=== PATIENT | male | born 1950 | race Caucasian/White ===

== ENCOUNTER 2017-01-26 14:35 | Observation (INO) | payer OTHER ==
--- NOTE | 2017-01-26 17:57 | DR.H&P ---
H&P - History & Physical for Day of: H&P Date: 01/26/17 - Chief Complaint Chief Complaint: weakness, confusion per family - Allergies Allergies/Adverse Reactions: Allergies Allergy/AdvReac Type Severity Reaction Status Date / Time No Known Drug Allergies Allergy Verified 01/08/17 01:37 - History of Present Illness History of Present Illness: patient is a 66-year-old white male who was a direct admit from Dr. Saenz's office after presenting to the office today for follow-up visit. Patient was recently diagnosed with cirrhosis of the liver as well as abnormal findings on diagnostic tests consistent with multiple myeloma. Patient has been referred to jewel bearing facer/oncologist on an outpatient basis which he has not pain at this time. Patient was recently released from [facility] in [facility] after acute illness. Patient was started on medicine for liver disease. Family reports patient also has a back fracture that is causing increased pain and decreased mobility. Patient reports increased lower extremity weakness and shortness of breath. Patient's family states he has transient changes in his mental status. Episodes of confusion consistent with changes in ammonia levels from cirrhosis/liver disease. Patient and family would like to consider placement in rehabilitation facility. We plan to admit for further evaluation of generalized weakness. Obtain admission labs and ammonia level, chest x-ray and EKG. We will consult case management for placement in [facility]. - Past Medical History Past Medical History: Cirrhosis, COPD, Diabetes, GERD, Hypertension - Past Surgical History Surgical History: Appendectomy, Cholecystectomy - Family History Family Medical History: Diabetes Mellitus, Coronary Artery Disease, Hypertension - Social History Does patient currently use any type of tobacco product: No Have you used tobacco products in the last 12 months: No Type of Tobacco Use: None Does any household member use tobacco: No Alcohol Use: None Drug Use: None - Review of Systems Constitutional: Weakness Eyes: No Symptoms Reported ENT: No Symptoms Reported Respiratory: SOB with Excertion Cardiovascular: Edema Gastrointestinal: Nausea, Diarrhea Genitourinary: Frequency Musculoskeletal: Back Pain, Leg Pain Skin: Ecchymosis Neurological: Weakness, Confusion - Physical Exam Vital Signs: Temperature 98.3 F Pulse Rate [Left Brachial] 73 Respiratory Rate 20 Blood Pressure [Right Arm] 125/60 Blood Pressure [Left Arm] 131/65 Blood Pressure 122/61 O2 Sat by Pulse Oximetry 93 Oriented: Person Eyes: Normal Ear: Normal Nose: Normal Throat: Normal Respiratory: RLL Diminished, LLL Diminished Cardiovascular: Normal, Edema : Normal Auscultation: Bowel Sounds: Normal Palpation: Liver Enlarged, Other (distention) Skin: Bruising Musculoskeletal: Back:Thoracic, Back:Lumbar Psychiatric: Anxiety Speech Pattern: Clear, Appropriate - Assessment/Plan (1) Generalized weakness Status: Acute Plan: admit. CBC, CMP, ammonia level, UA, urine culture on admission. Resume home medications. Chest x-ray on admission. Blood pressure control mental status checks consult case management and physical therapy. Discussed placement for rehabilitation at [facility]. (2) Cirrhosis of liver Status: Acute (3) GERD (gastroesophageal reflux disease) Status: Acute (4) Hypertension Status: Acute (5) Back pain Status: Acute
[2017-01-26] MEDS ORDERED: PREVNAR 13 IM ONE (18:28)
[2017-01-26] MEDS ORDERED: FLUVIRIN IM ONE (18:28)
[2017-01-26 19:26] LABS: BASOPHILS # (AUTO) 0.1 X10^3/uL (0.0-0.1); EOSINOPHILS # (AUTO) 0.1 x10^3/uL (0.0-0.2); EOSINOPHILS % (AUTO) 1.7 % (0.9-2.9); HEMATOCRIT 33.5 % (42.0-54.0); HEMOGLOBIN 11.4 g/dL (13.5-18.0); LYMPHOCYTES # (AUTO) 1.4 X10^3/uL (1.3-2.9); MEAN CORPUSCULAR HEMOGLOBIN 32.9 pg (27.0-34.0); MEAN CORPUSCULAR VOLUME 96.8 fL (80.0-100.0); MEAN PLATELET VOLUME 8.3 fL (7.4-11.0); MONOCYTES # (AUTO) 0.4 x10^3/uL (0.3-0.8); MONOCYTES % (AUTO) 12.6 % (0.0-13.0); NEUTROPHILS # (AUTO) 1.4 x10^3/uL (2.2-4.8); NEUTROPHILS % (AUTO) 41.7 % (42.0-75.0); PLATELET COUNT 100 X10^3/uL (150.0-450.0); RED BLOOD COUNT 3.46 X10^6/uL (4.7-6.0); RED CELL DISTRIBUTION WIDTH 16.5 % (11.6-16.5); WHITE BLOOD COUNT 3.3 X10^3/uL (3.6-10.0)
[2017-01-26 19:36] LABS: AMMONIA 39 umol/L (11-32)
[2017-01-26 19:50] LABS: PLATELET MORPHOLOGY COMMENT NORMAL (NORMAL)
[2017-01-26 19:51] LABS: BAND NEUTROPHILS % 1 % (0-10); BASOPHILS % (MANUAL) 1 % (0-1)
[2017-01-26] MEDS ORDERED: ULTRAM PO PRN (19:51)
[2017-01-26 19:52] LABS: HYPOCHROMASIA SLIGHT
[2017-01-26] MEDS ORDERED: TRICOR TAB 160 MG PO SCH (21:00)
[2017-01-26] MEDS ORDERED: PATIENT'S HOME MEDICATION (Fluoxetine Hcl [Prozac Cap 40 Mg] 40 MG) PO SCH (21:00)
[2017-01-26] MEDS ORDERED: COREG TAB 12.5 MG PO SCH (21:00)
[2017-01-26] MEDS ORDERED: NEURONTIN CAP 300 MG PO SCH (21:00)
[2017-01-26] MEDS ORDERED: XIFAXAN PO SCH (21:00)
[2017-01-26] MEDS ORDERED: PriLOSEC PO SCH (21:00)
[2017-01-26] MEDS ORDERED: PATIENT'S HOME MEDICATION (Metformin Hcl [Metformin Hcl] 1 TAB) PO SCH (21:00)
[2017-01-26 21:34] LABS: BLOOD UREA NITROGEN 11 mg/dL (7-18); CALCIUM 11.1 mg/dL (8.5-10.1); CARBON DIOXIDE 22.7 mmol/L (21-32); CHLORIDE 106 mmol/L (98-107); COR NA(FOR HYPERGLY) 146 mmol/L (136-145); CREATININE 1.07 mg/dL (0.70-1.30); SODIUM 145 mmol/L (136-145); eGFR BLACK RACES > 60 (>60); eGFR NON BLACK RACES > 60 (>60)
[2017-01-26] MEDS: COREG TAB 12.5 MG PO SCH (21:48)
[2017-01-26] MEDS ORDERED: GLUCOPHAGE ONE (21:58)
[2017-01-26] MEDS: GLUCOPHAGE PO SCH (22:05)
[2017-01-26] MEDS: PriLOSEC PO SCH (22:06)
[2017-01-26] MEDS: NEURONTIN TAB 600 MG PO SCH (22:06)
[2017-01-26] MEDS: XIFAXAN PO SCH (22:07)
[2017-01-26] MEDS: PROzac PO SCH (22:07)
[2017-01-26] MEDS: TRICOR TAB 160 MG PO SCH (22:08)
--- NOTE | 2017-01-26 23:11 | RAD ---
Single portable view of the chest Indication: Shortness of breath with back pain. Findings/conclusion: There is cardiomegaly with pulmonary venous hypertension. No large pleural effus ion is seen. Opacity within the right lower lobe appears to represent a confluence of vessels. The re maining lungs are clear. Reported By:
[2017-01-26 23:41] LABS: ALANINE AMINOTRANSFERASE 23 Units/L (12-78); ALBUMIN 2.9 g/dL (3.4-5.0); ALKALINE PHOSPHATASE 187 Units/L (46-116); ASPARTATE AMINO TRANSFERASE 65 Units/L (15-37); TOTAL PROTEIN 6.3 g/dL (6.4-8.2)
[2017-01-26 23:47] LABS: BILIRUBIN,URINE NEGATIVE (NEGATIVE); BLOOD/HEMOGLOBIN,URINE NEGATIVE (NEGATIVE); GLUCOSE, URINE 4+ (NEGATIVE); KETONES,URINE NEGATIVE (NEGATIVE); LEUKOCYTE ESTERASE ,URINE NEGATIVE (NEGATIVE); NITRITES,URINE NEGATIVE (NEGATIVE); PROTEIN,URINE NEGATIVE (NEGATIVE); UROBILINOGEN,URINE NORMAL (NORMAL)
[2017-01-26 23:59] LABS: APPEARANCE,URINE CLOUDY (CLEAR); BACTERIA,URINE TRACE /HPF (NEGATIVE); COLOR,URINE YELLOW (YELLOW); RBC,URINE 0-3 /HPF (NEGATIVE); SQUAMOUS EPITHELIAL CELL,UR RARE /HPF (NEGATIVE)
[2017-01-27] LABS: AMORPHOUS SEDIMENT,UR 3+ /HPF (NEGATIVE)
[2017-01-27 05:14] LABS: BASOPHILS % (AUTO) 0.7 % (0.2-1.0); EOSINOPHILS # (AUTO) 0.1 x10^3/uL (0.0-0.2); EOSINOPHILS % (AUTO) 2.1 % (0.9-2.9); HEMATOCRIT 33.3 % (42.0-54.0); HEMOGLOBIN 11.4 g/dL (13.5-18.0); LYMPHOCYTES # (AUTO) 1.2 X10^3/uL (1.3-2.9); LYMPHOCYTES % (AUTO) 37.6 % (21.0-51.0); MEAN CORPUSCULAR HEMOGLOBIN 32.8 pg (27.0-34.0); MEAN CORPUSCULAR HGB CONC 34.1 g/dL (33.0-35.0); MEAN CORPUSCULAR VOLUME 96.2 fL (80.0-100.0); MEAN PLATELET VOLUME 8.4 fL (7.4-11.0); MONOCYTES # (AUTO) 0.4 x10^3/uL (0.3-0.8); MONOCYTES % (AUTO) 12.5 % (0.0-13.0); NEUTROPHILS # (AUTO) 1.5 x10^3/uL (2.2-4.8); NEUTROPHILS % (AUTO) 47.1 % (42.0-75.0); PLATELET COUNT 91 X10^3/uL (150.0-450.0); RED BLOOD COUNT 3.46 X10^6/uL (4.7-6.0); WHITE BLOOD COUNT 3.2 X10^3/uL (3.6-10.0)
[2017-01-27 05:24] LABS: ALANINE AMINOTRANSFERASE 18 Units/L (12-78); ALBUMIN 2.8 g/dL (3.4-5.0); ALKALINE PHOSPHATASE 177 Units/L (46-116); ASPARTATE AMINO TRANSFERASE 53 Units/L (15-37); BLOOD UREA NITROGEN 11 mg/dL (7-18); CARBON DIOXIDE 29.7 mmol/L (21-32); CHLORIDE 108 mmol/L (98-107); COR NA(FOR HYPERGLY) 147 mmol/L (136-145); CREATININE 1.04 mg/dL (0.70-1.30); SODIUM 146 mmol/L (136-145); eGFR BLACK RACES > 60 (>60); eGFR NON BLACK RACES > 60 (>60)
[2017-01-27] MEDS ORDERED: LASIX PO SCH (09:00)
[2017-01-27] MEDS ORDERED: CANAGLIFLOZIN PO SCH (09:00)
[2017-01-27] MEDS ORDERED: GLUCOPHAGE ONE ×2 (09:13→21:08)
[2017-01-27] MEDS ORDERED: PREVNAR 13 IM ONE (09:14)
[2017-01-27] MEDS ORDERED: FLUVIRIN IM ONE (09:14)
[2017-01-27] MEDS: COREG TAB 12.5 MG PO SCH ×2 (10:18→21:54)
[2017-01-27] MEDS: LASIX PO SCH (10:19)
[2017-01-27] MEDS: PriLOSEC PO SCH ×2 (10:19→21:56)
[2017-01-27] MEDS: XIFAXAN PO SCH ×2 (10:19→21:58)
[2017-01-27] MEDS: GLUCOPHAGE PO SCH ×2 (10:19→21:55)
[2017-01-27] MEDS: PATIENT'S HOME MEDICATION PO SCH (10:20)
[2017-01-27] MEDS: ULTRAM PO PRN ×2 (10:32→18:20)
[2017-01-27 10:51] VITALS: BMI 29.4
[2017-01-27] MEDS: SNACK - Diabetic Appropriate PO SCH ×2 (11:00→20:30)
[2017-01-27] MEDS: TRICOR TAB 160 MG PO SCH (21:55)
[2017-01-27] MEDS: NEURONTIN TAB 600 MG PO SCH (21:56)
[2017-01-27] MEDS: PROzac PO SCH (21:57)
[2017-01-28 05:33] LABS: BASOPHILS % (AUTO) 0.4 % (0.2-1.0); EOSINOPHILS # (AUTO) 0.1 x10^3/uL (0.0-0.2); EOSINOPHILS % (AUTO) 2.7 % (0.9-2.9); HEMATOCRIT 34.5 % (42.0-54.0); HEMOGLOBIN 11.8 g/dL (13.5-18.0); LYMPHOCYTES # (AUTO) 1.2 X10^3/uL (1.3-2.9); LYMPHOCYTES % (AUTO) 40.7 % (21.0-51.0); MEAN CORPUSCULAR HGB CONC 34.1 g/dL (33.0-35.0); MEAN CORPUSCULAR VOLUME 96.7 fL (80.0-100.0); MEAN PLATELET VOLUME 8.5 fL (7.4-11.0); MONOCYTES # (AUTO) 0.4 x10^3/uL (0.3-0.8); MONOCYTES % (AUTO) 12.8 % (0.0-13.0); NEUTROPHILS # (AUTO) 1.3 x10^3/uL (2.2-4.8); NEUTROPHILS % (AUTO) 43.4 % (42.0-75.0); PLATELET COUNT 92 X10^3/uL (150.0-450.0); RED BLOOD COUNT 3.56 X10^6/uL (4.7-6.0)
[2017-01-28 05:53] LABS: ALANINE AMINOTRANSFERASE 21 Units/L (12-78); ALBUMIN 2.9 g/dL (3.4-5.0); ALKALINE PHOSPHATASE 175 Units/L (46-116); ASPARTATE AMINO TRANSFERASE 60 Units/L (15-37); BLOOD UREA NITROGEN 11 mg/dL (7-18); CALCIUM 11.2 mg/dL (8.5-10.1); CARBON DIOXIDE 28.9 mmol/L (21-32); CHLORIDE 108 mmol/L (98-107); COR CA(FOR HYPOALB) 12.1 mg/dL (8.5-10.1); COR NA(FOR HYPERGLY) 146 mmol/L (136-145); CREATININE 0.95 mg/dL (0.70-1.30); SODIUM 146 mmol/L (136-145); TOTAL PROTEIN 6.3 g/dL (6.4-8.2); eGFR BLACK RACES > 60 (>60); eGFR NON BLACK RACES > 60 (>60)
[2017-01-28] MEDS ORDERED: MAGNESIUM SULFATE 1 GM/100 mL PREMIX 1 GM/100 ML BAG IV PRN (06:09)
[2017-01-28] MEDS ORDERED: K-DUR TAB 20 MEQ PO PRN (06:09)
[2017-01-28] MEDS ORDERED: MAG-OX TAB PO PRN (06:09)
[2017-01-28] MEDS ORDERED: K-RIDER 10 MEQ/NS 100 ML 10 MEQ/100 ML BAG IV PRN (06:09)
[2017-01-28] MEDS ORDERED: POTASSIUM CHLORIDE LIQ 20 MEQ UDC PO PRN (06:09)
[2017-01-28] MEDS ORDERED: K-LYTE EFFERVESCENT PO PRN (06:09)
[2017-01-28] MEDS ORDERED: LASIX IVP NR (08:05)
[2017-01-28] MEDS: MAG-OX TAB PO SCH ×2 (09:21→16:10)
[2017-01-28] MEDS ORDERED: GLUCOPHAGE ONE ×2 (10:29→20:20)
[2017-01-28] MEDS: GLUCOPHAGE PO SCH ×2 (10:33→20:43)
[2017-01-28] MEDS: COREG TAB 12.5 MG PO SCH ×2 (10:34→20:43)
[2017-01-28] MEDS: K-DUR TAB 20 MEQ PO SCH (10:34)
[2017-01-28] MEDS: PATIENT'S HOME MEDICATION PO SCH (10:34)
[2017-01-28] MEDS: PriLOSEC PO SCH ×2 (10:34→20:43)
[2017-01-28] MEDS: XIFAXAN PO SCH ×2 (10:34→20:48)
[2017-01-28] MEDS: LASIX PO SCH (10:35)
[2017-01-28] MEDS: ULTRAM PO PRN (16:10)
[2017-01-28] MEDS: PROzac PO SCH (20:43)
[2017-01-28] MEDS: NEURONTIN TAB 600 MG PO SCH (20:43)
[2017-01-28] MEDS: SNACK - Diabetic Appropriate PO SCH (20:47)
[2017-01-28] MEDS: TRICOR TAB 160 MG PO SCH (20:47)
[2017-01-29 06:06] LABS: BASOPHILS % (AUTO) 0.5 % (0.2-1.0); EOSINOPHILS # (AUTO) 0.1 x10^3/uL (0.0-0.2); HEMATOCRIT 33.9 % (42.0-54.0); HEMOGLOBIN 11.6 g/dL (13.5-18.0); LYMPHOCYTES # (AUTO) 1.4 X10^3/uL (1.3-2.9); LYMPHOCYTES % (AUTO) 42.3 % (21.0-51.0); MEAN CORPUSCULAR HEMOGLOBIN 33.2 pg (27.0-34.0); MEAN CORPUSCULAR HGB CONC 34.3 g/dL (33.0-35.0); MEAN CORPUSCULAR VOLUME 96.7 fL (80.0-100.0); MEAN PLATELET VOLUME 8.5 fL (7.4-11.0); MONOCYTES # (AUTO) 0.4 x10^3/uL (0.3-0.8); MONOCYTES % (AUTO) 11.9 % (0.0-13.0); NEUTROPHILS # (AUTO) 1.4 x10^3/uL (2.2-4.8); NEUTROPHILS % (AUTO) 42.3 % (42.0-75.0); PLATELET COUNT 89 X10^3/uL (150.0-450.0); RED CELL DISTRIBUTION WIDTH 16.4 % (11.6-16.5); WHITE BLOOD COUNT 3.3 X10^3/uL (3.6-10.0)
[2017-01-29] MEDS: MAG-OX TAB PO SCH ×2 (06:08→17:30)
[2017-01-29 06:11] LABS: ALANINE AMINOTRANSFERASE 19 Units/L (12-78); ALBUMIN 2.9 g/dL (3.4-5.0); ALKALINE PHOSPHATASE 168 Units/L (46-116); ASPARTATE AMINO TRANSFERASE 59 Units/L (15-37); BLOOD UREA NITROGEN 10 mg/dL (7-18); CALCIUM 11.5 mg/dL (8.5-10.1); CARBON DIOXIDE 30.5 mmol/L (21-32); CHLORIDE 107 mmol/L (98-107); COR CA(FOR HYPOALB) 12.4 mg/dL (8.5-10.1); COR NA(FOR HYPERGLY) 145 mmol/L (136-145); CREATININE 0.92 mg/dL (0.70-1.30); MAGNESIUM 1.8 mg/dL (1.7-2.9); SODIUM 145 mmol/L (136-145); TOTAL PROTEIN 6.2 g/dL (6.4-8.2); eGFR BLACK RACES > 60 (>60); eGFR NON BLACK RACES > 60 (>60)
[2017-01-29] MEDS ORDERED: GLUCOPHAGE ONE ×2 (08:21→20:32)
[2017-01-29] MEDS: XIFAXAN PO SCH ×2 (08:33→21:05)
[2017-01-29] MEDS: ULTRAM PO PRN (08:33)
[2017-01-29] MEDS: GLUCOPHAGE PO SCH ×2 (08:34→21:04)
[2017-01-29] MEDS: COREG TAB 12.5 MG PO SCH ×2 (08:34→21:04)
[2017-01-29] MEDS: PATIENT'S HOME MEDICATION PO SCH (08:35)
[2017-01-29] MEDS: PriLOSEC PO SCH ×2 (08:35→21:04)
[2017-01-29] MEDS: K-DUR TAB 20 MEQ PO SCH (08:35)
[2017-01-29] MEDS: LASIX PO SCH (08:35)
[2017-01-29] MEDS ORDERED: CHRONULAC PO SCH (21:00)
[2017-01-29] MEDS: NEURONTIN TAB 600 MG PO SCH (21:04)
[2017-01-29] MEDS: PROzac PO SCH (21:04)
[2017-01-29] MEDS: TRICOR TAB 160 MG PO SCH (21:05)
[2017-01-29] MEDS: SNACK - Diabetic Appropriate PO SCH (21:08)
--- NOTE | 2017-01-29 22:38 | PCM.PROG ---
Progress Note - Progress Note for Day of Date: 01/29/17 - Subjective Subjective: patient is a 66-year-old white male who was a direct admit from Dr. Saenz's office after presenting to the office today for follow-up visit. Patient was recently diagnosed with cirrhosis of the liver as well as abnormal findings on diagnostic tests consistent with multiple myeloma. Patient has been referred to cloth examiner machine/oncologist on an outpatient basis which he has not pain at this time. Patient was recently released from [facility] in [facility] after acute illness. Patient was started on medicine for liver disease. Family reports patient also has a back fracture that is causing increased pain and decreased mobility. Patient reports increased lower extremity weakness and shortness of breath. Patient's family states he has transient changes in his mental status. Episodes of confusion consistent with changes in ammonia levels from cirrhosis/liver disease. Patient and family would like to consider placement in rehabilitation facility. Patient has signed a DNR. Does complain of right testicle is painful. States he has had an US on it. States he was being evaluated for multiple myeloma in [place]. - Past Medical Family Social History Past Med/Fam/Surg Hx: No changes since H&P Allergies: Allergies No Known Drug Allergies Allergy (Verified 01/08/17 01:37) - Review of Systems ROS: No change since H&P - Vital Signs and I&O's Vital Signs: Temperature 97.5 F Pulse Rate [Left Brachial] 67 Respiratory Rate 20 Blood Pressure [Right Arm] 121/64 Blood Pressure [Left Arm] 128/61 Blood Pressure 122/61 O2 Sat by Pulse Oximetry 91 Intake and Output: Intake & Output 01/27/17 01/28/17 01/29/17 01/30/17 11:59 11:59 11:59 11:59 Intake Total 5484 247 1839 1470 Balance 3415 457 3490 1470 - Physical Exam Oriented: Normal Eyes: Normal Ear: Normal Nose: Normal Throat: Normal Respiratory: Diminished Cardiovascular: Normal, Edema : Normal Auscultation: Bowel Sounds: Normal Palpation: Liver Enlarged Tenderness: Normal Skin: Bruising Musculoskeletal: Back:Thoracic, Back:Lumbar, Tender Psychiatric: Normal Mood Description: Calm Affect: Normal Speech Pattern: Clear, Appropriate - Laboratory and Diagnostics Result Diagrams: 01/29/17 03:25 01/29/17 03:25 Labs: 01/26/17 23:37 Urine,Clean Catch Urine Culture - Final Laboratory WBC 3.3 X10^3/uL (3.6-10.0) L 01/29/17 03:25 RBC 3.50 X10^6/uL (4.7-6.0) L 01/29/17 03:25 Hgb 11.6 g/dL (13.5-18.0) L 01/29/17 03:25 Hct 33.9 % (42.0-54.0) L 01/29/17 03:25 MCV 96.7 fL (80.0-100.0) 01/29/17 03:25 MCH 33.2 pg (27.0-34.0) 01/29/17 03:25 MCHC 34.3 g/dL (33.0-35.0) 01/29/17 03:25 RDW 16.4 % (11.6-16.5) 01/29/17 03:25 Plt Count 89 X10^3/uL (150.0-450.0) L 01/29/17 03:25 Plt Count Comment Decreased (ADEQUATE) 01/26/17 19:15 MPV 8.5 fL (7.4-11.0) 01/29/17 03:25 Neut % 42.3 % (42.0-75.0) 01/29/17 03:25 Lymph % 42.3 % (21.0-51.0) 01/29/17 03:25 [place] % 11.9 % (0.0-13.0) 01/29/17 03:25 Eos % 3.0 % (0.9-2.9) H 01/29/17 03:25 Baso % 0.5 % (0.2-1.0) 01/29/17 03:25 Neut # 1.4 x10^3/uL (2.2-4.8) L 01/29/17 03:25 Lymph # 1.4 X10^3/uL (1.3-2.9) 01/29/17 03:25 [place] # 0.4 x10^3/uL (0.3-0.8) 01/29/17 03:25 Eos # 0.1 x10^3/uL (0.0-0.2) 01/29/17 03:25 Baso # 0.0 X10^3/uL (0.0-0.1) 01/29/17 03:25 Absolute Nucleated RBC 0.5 /100WBC 01/29/17 03:25 Total Counted 100 01/26/17 19:15 Neutrophils % (Manual) 54 % (39-76) 01/26/17 19:15 Band Neutrophils % 1 % (0-10) 01/26/17 19:15 Lymphocytes % (Manual) 36 % (13-43) 01/26/17 19:15 Monocytes % (Manual) 7 % (4-9) 01/26/17 19:15 Eosinophils % (Manual) 1 % (0-6) 01/26/17 19:15 Basophils % (Manual) 1 % (0-1) 01/26/17 19:15 Plt Morphology Comment Normal (NORMAL) 01/26/17 19:15 RBC Morphology Abnormal (NORMAL) 01/26/17 19:15 Hypochromasia Slight A 01/26/17 19:15 Sodium 145 mmol/L (136-145) 01/29/17 03:25 Corrected Sodium 145 mmol/L (136-145) 01/29/17 03:25 Potassium 3.5 mmol/L (3.5-5.1) 01/29/17 03:25 Chloride 107 mmol/L (98-107) 01/29/17 03:25 Carbon Dioxide 30.5 mmol/L (21-32) 01/29/17 03:25 BUN 10 mg/dL (7-18) 01/29/17 03:25 Creatinine 0.92 mg/dL (0.70-1.30) 01/29/17 03:25 Est GFR (MDRD) Af Amer > 60 (>60) 01/29/17 03:25 Est GFR (MDRD) Non-Af > 60 (>60) 01/29/17 03:25 Glucose 111 mg/dL (65-99) H 01/29/17 03:25 POC Glucose (mg/dL) 138 mg/dL (65-99) H 01/29/17 21:02 Calcium 11.5 mg/dL (8.5-10.1) H 01/29/17 03:25 Corrected Calcium 12.4 mg/dL (8.5-10.1) H 01/29/17 03:25 Magnesium 1.8 mg/dL (1.7-2.9) 01/29/17 03:25 Total Bilirubin 0.80 mg/dL (0.2-1.0) 01/29/17 03:25 AST 59 Units/L (15-37) H 01/29/17 03:25 ALT 19 Units/L (12-78) 01/29/17 03:25 Alkaline Phosphatase 168 Units/L (46-116) H 01/29/17 03:25 Ammonia 84 umol/L (11-32) H 01/29/17 12:57 Total Protein 6.2 g/dL (6.4-8.2) L 01/29/17 03:25 Albumin 2.9 g/dL (3.4-5.0) L 01/29/17 03:25 Globulin 3.3 g/dL (2.5-4.5) 01/29/17 03:25 Albumin/Globulin Ratio 0.9 Ratio (1.1-2.1) L 01/29/17 03:25 Specimen Type Clean catch urine 01/26/17 23:37 Urine Color Yellow (YELLOW) 01/26/17 23:37 Urine Appearance Cloudy (CLEAR) 01/26/17 23:37 Urine pH 7.0 (5.0 - 8.0) 01/26/17 23:37 Ur Specific [place] 1.015 (1.000-1.030) 01/26/17 23:37 Urine Protein Negative (NEGATIVE) 01/26/17 23:37 Urine Glucose (UA) 4+ (NEGATIVE) 01/26/17 23:37 Urine Ketones Negative (NEGATIVE) 01/26/17 23:37 Urine Occult Blood Negative (NEGATIVE) 01/26/17 23:37 Urine Nitrite Negative (NEGATIVE) 01/26/17 23:37 Urine Bilirubin Negative (NEGATIVE) 01/26/17 23:37 Urine Urobilinogen Normal (NORMAL) 01/26/17 23:37 Ur Leukocyte Esterase Negative (NEGATIVE) 01/26/17 23:37 Urine RBC 0-3 /HPF (NEGATIVE) 01/26/17 23:37 Urine WBC 0-3 /HPF (NEGATIVE) 01/26/17 23:37 Ur Squamous Epith Cells Rare /HPF (NEGATIVE) 01/26/17 23:37 Amorphous Sediment 3+ /HPF (NEGATIVE) 01/26/17 23:37 Urine Bacteria Trace /HPF (NEGATIVE) 01/26/17 23:37 Ur Culture Indicated? Yes/culture set up 01/26/17 23:37 - Plan (1) Back pain Status: Acute Qualifiers: Back pain location: low back pain Plan: PAIN MEDICATION NEEDED. (2) Cirrhosis of liver Status: Acute Plan: MONITOR AMMONIA, LIVER ENZYMES. OBTAINED MEDICAL RECORD FROM [facility] (3) Generalized weakness Status: Acute Plan: Discussed placement for rehabilitation at [facility]. (4) Hypertension Status: Acute Qualifiers: Hypertension type: essential hypertension Qualified Code(s): I10 - Essential (primary) hypertension Plan: MONITOR BP AND ADMINISTER ANTI-HYPERTENSIVES. (5) Mental status alteration Status: Resolved Qualifiers: Altered mental status type: transient alteration of awareness Qualified Code(s): R40.4 - Transient alteration of awareness Plan: IMPROVED
[2017-01-30] MEDS: MAG-OX TAB PO SCH ×2 (06:09→17:24)
[2017-01-30 06:11] LABS: BASOPHILS % (AUTO) 0.4 % (0.2-1.0); BLOOD UREA NITROGEN 12 mg/dL (7-18); CALCIUM 11.6 mg/dL (8.5-10.1); CARBON DIOXIDE 28.9 mmol/L (21-32); CHLORIDE 108 mmol/L (98-107); COR NA(FOR HYPERGLY) 147 mmol/L (136-145); CREATININE 0.96 mg/dL (0.70-1.30); EOSINOPHILS # (AUTO) 0.1 x10^3/uL (0.0-0.2); EOSINOPHILS % (AUTO) 2.3 % (0.9-2.9); HEMATOCRIT 35.8 % (42.0-54.0); HEMOGLOBIN 12.2 g/dL (13.5-18.0); LYMPHOCYTES # (AUTO) 1.2 X10^3/uL (1.3-2.9); LYMPHOCYTES % (AUTO) 36.2 % (21.0-51.0); MEAN CORPUSCULAR HEMOGLOBIN 32.9 pg (27.0-34.0); MEAN CORPUSCULAR HGB CONC 34.2 g/dL (33.0-35.0); MEAN CORPUSCULAR VOLUME 96.4 fL (80.0-100.0); MEAN PLATELET VOLUME 8.2 fL (7.4-11.0); MONOCYTES # (AUTO) 0.4 x10^3/uL (0.3-0.8); MONOCYTES % (AUTO) 11.2 % (0.0-13.0); NEUTROPHILS # (AUTO) 1.7 x10^3/uL (2.2-4.8); NEUTROPHILS % (AUTO) 49.9 % (42.0-75.0); PLATELET COUNT 89 X10^3/uL (150.0-450.0); RED BLOOD COUNT 3.72 X10^6/uL (4.7-6.0); RED CELL DISTRIBUTION WIDTH 16.4 % (11.6-16.5); SODIUM 146 mmol/L (136-145); WHITE BLOOD COUNT 3.3 X10^3/uL (3.6-10.0); eGFR BLACK RACES > 60 (>60); eGFR NON BLACK RACES > 60 (>60)
[2017-01-30] MEDS ORDERED: GLUCOPHAGE ONE (07:20)
[2017-01-30] MEDS: GLUCOPHAGE PO SCH (09:04)
[2017-01-30] MEDS: XIFAXAN PO SCH (09:04)
[2017-01-30] MEDS: COREG TAB 12.5 MG PO SCH (09:05)
[2017-01-30] MEDS: K-DUR TAB 20 MEQ PO SCH (09:05)
[2017-01-30] MEDS: LASIX PO SCH (09:05)
[2017-01-30] MEDS: ULTRAM PO PRN ×2 (09:05→16:52)
[2017-01-30] MEDS: PriLOSEC PO SCH (09:05)
[2017-01-30] MEDS: PATIENT'S HOME MEDICATION PO SCH (09:06)
[2017-01-30 12:23] VITALS: BP 121/63
== END 2017-01-30 17:20 | disposition home or self-care (01) ==
LOC: UNDOADMOB 14:35 → MED/SURG 14:35
PROVIDERS: ADMIT Internal Medicine; ATTEND Internal Medicine
PROC: 3E0234Z Introduction of Serum, Toxoid and Vaccine into Muscle, Percutaneous Approach (ICD-10-PCS; principal; 2017-01-27)
PROC: 3E0234Z Introduction of Serum, Toxoid and Vaccine into Muscle, Percutaneous Approach (ICD-10-PCS; 2017-01-27)
DX: R40.4 Transient alteration of awareness (principal); R53.1 Weakness; K74.69 Other cirrhosis of liver; R06.02 Shortness of breath; J44.9 Chronic obstructive pulmonary disease, unspecified; E11.65 Type 2 diabetes mellitus with hyperglycemia; K21.9 Gastro-esophageal reflux disease without esophagitis; I10 Essential (primary) hypertension; M54.89 Other dorsalgia; R60.0 Localized edema; Z66 Do not resuscitate; C90.00 Multiple myeloma not having achieved remission; R26.89 Other abnormalities of gait and mobility; Z23 Encounter for immunization
CPT/HCPCS: 36415; 71010; 80048; 80053; 81001; 82140; 83735; 84132; 85025; 87086; 90686; A4222; 90670; G0378; J1940

== ENCOUNTER 2017-02-14 13:43 | Inpatient (IN) | payer OTHER ==
--- NOTE | 2017-02-14 13:51 | DR.AMS ---
HPI - Time Seen Time seen: 15:40 - Complaint Cheif Complaint Doctors Comments: Patient presented to the ED with complaint of AMS as reported by EMS. Patient admits to right chest wall pain for three days. He reports that he fell while using the potty. He denies chest pain or coough PMH - PMH Past Medical History: Cirrhosis, COPD, Diabetes, GERD, Hypertension Past Surgical History: Yes Surgical History: Appendectomy, Cholecystectomy - Family History Family Medical History: Diabetes Mellitus, Coronary Artery Disease, Hypertension - Social History Do you use any recreational Drugs:: No ROS - Review of Systems Eyes: No Symptoms Reported ENTM: No Symptoms Reported Respiratoy: No Symptoms Reported Cardiovascular: No Symptoms Reported Gastrointestinal/Abdominal: No Symptoms Reported Genitourinary: No Symptoms Reported Neurological: No Symptoms Reported Musculoskeletal: No Symptoms Reported, Other (bruise left arm) Integumentary: No Symptoms Reported Hematologic/Lymphatic: No Symptoms Reported Endocrine: No Symptoms Reported Psychiatric: No Symptoms Reported All Other Systems: Reviewed and Negative PE - Vitals Vital Signs: Temp Pulse Pulse Pulse Resp BP BP 02/14/17 20:00 66 18 117/55 02/14/17 19:10 67 18 119/57 02/14/17 18:29 65 16 117/62 02/14/17 14:44 80 16 02/14/17 13:47 98.6 F 61 22 114/60 01/30/17 12:00 121/63 01/29/17 04:00 128/61 BP Pulse Ox 02/14/17 20:00 95 02/14/17 19:10 95 02/14/17 18:29 96 02/14/17 14:44 118/76 99 02/14/17 13:47 98 01/30/17 12:00 121/63 01/29/17 04:00 - General Limitations: No Limitations General Appearance: Alert, In No Apparent Distress - Head Head Exam: Normal Inspection, Atraumatic - Eyes Eye exam: Normal Appearance Course - Reevaluation 1st: Unchanged ROR - Labs Reviewed Result Diagrams: 02/14/17 14:30 02/14/17 14:30 Laboratory: WBC 3.9 X10^3/uL (3.6-10.0) 02/14/17 14:30 RBC 4.11 X10^6/uL (4.7-6.0) L 02/14/17 14:30 Hgb 13.5 g/dL (13.5-18.0) 02/14/17 14:30 Hct 40.3 % (42.0-54.0) L 02/14/17 14:30 MCV 98.1 fL (80.0-100.0) 02/14/17 14:30 MCH 32.8 pg (27.0-34.0) 02/14/17 14: MCHC 33.5 g/dL (33.0-35.0) 02/14/17 14:30 RDW 16.9 % (11.6-16.5) H 02/14/17 14:30 Plt Count 70 X10^3/uL (150.0-450.0) L 02/14/17 14:30 MPV 9.4 fL (7.4-11.0) 02/14/17 14: Neut % 50.3 % (42.0-75.0) 02/14/17 14: Lymph % 37.6 % (21.0-51.0) 02/14/17 14:30 [place] % 9.5 % (0.0-13.0) 02/14/17 14:30 Eos % 1.6 % (0.9-2.9) 02/14/17 14:30 Baso % 1.0 % (0.2-1.0) 02/14/17 14:30 Neut # 2.0 x10^3/uL (2.2-4.8) L 02/14/17 14: Lymph # 1.5 X10^3/uL (1.3-2.9) 02/14/17 14:30 [place]icher # 0.4 x10^3/uL (0.3-0.8) 02/14/17 14:30 Eos # 0.1 x10^3/uL (0.0-0.2) 02/14/17 14:30 Baso # 0.0 X10^3/uL (0.0-0.1) 02/14/17 14:30 Absolute Nucleated RBC 0.4 /100WBC 02/14/17 14:30 Sodium 147 mmol/L (136-145) H 02/14/17 14:30 Corrected Sodium TNP 02/14/17 14:30 Potassium 3.8 mmol/L (3.5-5.1) 02/14/17 14:30 Chloride 107 mmol/L (98-107) 02/14/17 14:30 Carbon Dioxide 30.6 mmol/L (21-32) 02/14/17 14:30 BUN 10 mg/dL (7-18) 02/14/17 14:30 Creatinine 0.95 mg/dL (0.70-1.30) 02/14/17 14:30 Est GFR (MDRD) Af Amer > 60 (>60) 02/14/17 14:30 Est GFR (MDRD) Non-Af > 60 (>60) 02/14/17 14:30 Glucose 101 mg/dL (65-99) H 02/14/17 14:30 Calcium 13.0 mg/dL (8.5-10.1) H* 02/14/17 14:30 Corrected Calcium 13.9 mg/dL (8.5-10.1) H 02/14/17 14:30 Magnesium 1.8 mg/dL (1.7-2.9) 02/14/17 14:30 Total Bilirubin 1.20 mg/dL (0.2-1.0) H 02/14/17 14:30 AST 80 Units/L (15-37) H 02/14/17 14:30 ALT 22 Units/L (12-78) 02/14/17 14:30 Alkaline Phosphatase 185 Units/L (46-116) H 02/14/17 14:30 Ammonia 50 umol/L (11-32) H 02/14/17 18:20 Creatine Kinase 30 Units/L (39-308) L 02/14/17 14:30 CK-MB (CK-2) < 1.0 ng/mL (0-4.0) 02/14/17 14:30 CK/CKMB % Calc 3.3 % (<4) 02/14/17 14:30 Troponin I 0.02 ng/mL (0-1.5) 02/14/17 14:30 Total Protein 6.3 g/dL (6.4-8.2) L 02/14/17 14:30 Albumin 2.9 g/dL (3.4-5.0) L 02/14/17 14:30 Globulin 3.4 g/dL (2.5-4.5) 02/14/17 14:30 Albumin/Globulin Ratio 0.9 Ratio (1.1-2.1) L 02/14/17 14:30 - XRAY XRAY Interpreted by: Radiologist (CT Brain: negative) - Diagnosis Discharge Problem: Hypercalcemia, Hyperammonemia Cirrhosis of liver Qualifiers: Hepatic cirrhosis type: unspecified hepatic cirrhosis Ascites presence: without ascites Qualified Code(s): K74.60 - Unspecified cirrhosis of liver Altered mental status Qualifiers: Altered mental status type: transient alteration of awareness Qualified Code(s) : R40.4 - Transient alteration of awareness - Discharge Plan Disposition: 09 ADMITTED INPATIENT Condition: Stable - Follow ups/Referrals - Instructions
[2017-02-14 14:39] LABS: EOSINOPHILS # (AUTO) 0.1 x10^3/uL (0.0-0.2); EOSINOPHILS % (AUTO) 1.6 % (0.9-2.9); HEMATOCRIT 40.3 % (42.0-54.0); HEMOGLOBIN 13.5 g/dL (13.5-18.0); LYMPHOCYTES # (AUTO) 1.5 X10^3/uL (1.3-2.9); LYMPHOCYTES % (AUTO) 37.6 % (21.0-51.0); MEAN CORPUSCULAR HEMOGLOBIN 32.8 pg (27.0-34.0); MEAN CORPUSCULAR HGB CONC 33.5 g/dL (33.0-35.0); MEAN CORPUSCULAR VOLUME 98.1 fL (80.0-100.0); MEAN PLATELET VOLUME 9.4 fL (7.4-11.0); MONOCYTES # (AUTO) 0.4 x10^3/uL (0.3-0.8); MONOCYTES % (AUTO) 9.5 % (0.0-13.0); NEUTROPHILS % (AUTO) 50.3 % (42.0-75.0); PLATELET COUNT 70 X10^3/uL (150.0-450.0); RED BLOOD COUNT 4.11 X10^6/uL (4.7-6.0); RED CELL DISTRIBUTION WIDTH 16.9 % (11.6-16.5); WHITE BLOOD COUNT 3.9 X10^3/uL (3.6-10.0)
[2017-02-14 14:57] LABS: ALANINE AMINOTRANSFERASE 22 Units/L (12-78); ALBUMIN 2.9 g/dL (3.4-5.0); ALKALINE PHOSPHATASE 185 Units/L (46-116); ASPARTATE AMINO TRANSFERASE 80 Units/L (15-37); BLOOD UREA NITROGEN 10 mg/dL (7-18); CARBON DIOXIDE 30.6 mmol/L (21-32); CHLORIDE 107 mmol/L (98-107); CKMB % 3.3 % (<4); COR CA(FOR HYPOALB) 13.9 mg/dL (8.5-10.1); CREATINE KINASE 30 Units/L (39-308); CREATINE KINASE MB < 1.0 ng/mL (0-4.0); CREATININE 0.95 mg/dL (0.70-1.30); MAGNESIUM 1.8 mg/dL (1.7-2.9); SODIUM 147 mmol/L (136-145); TOTAL PROTEIN 6.3 g/dL (6.4-8.2); TROPONIN I 0.02 ng/mL (0-1.5); eGFR BLACK RACES > 60 (>60); eGFR NON BLACK RACES > 60 (>60)
--- NOTE | 2017-02-14 15:24 | CT ---
History: Altered mental status after a fall 3 days ago and history of hypertension Study: CT head without contrast. Sagittal and coronal reformations were provided. Graft comparison: Aubrie addison 2016 Findings: There is no interval change. The ventricles and sulci are mildly prominent without mass eff ect. There is no intracranial hemorrhage or mass or edema and there is no subdural collection of bloo d. There are prominent subarachnoid spaces. The paranasal sinuses are clear. Impression: No acute intracranial disease demonstrated Reported By:
--- NOTE | 2017-02-14 15:42 | RAD ---
Right-sided rib series Indication: Recent fall with right-sided chest pain Comparison: 02/2017 Findings: There is diffuse mottling of the bony structures, which is better appreciated on the recent abdominal pelvic CT. There is minimally displaced acute appearing fracture of the anterior lateral right 8th rib. Cardiac silhouette enlargement is unchanged. The lungs are essentially clear without overt edema, foc al infiltrates, or large effusion. No pneumothorax identified. Impression: Minimally displaced anterior lateral right 8th rib fracture. Diffuse bone mottling, suggesting diffuse metastatic disease or multiple myeloma. Reported By:
[2017-02-14] MEDS: NS 1000 ML 1,000 ML IV SCH (16:15)
[2017-02-14] MEDS ORDERED: NS 1000 ML 1,000 ML IV SCH (21:00)
[2017-02-14 21:32] LABS: BILIRUBIN,URINE NEGATIVE (NEGATIVE); BLOOD/HEMOGLOBIN,URINE 1+ (NEGATIVE); GLUCOSE, URINE 4+ (NEGATIVE); KETONES,URINE 2+ (NEGATIVE); LEUKOCYTE ESTERASE ,URINE NEGATIVE (NEGATIVE); NITRITES,URINE NEGATIVE (NEGATIVE); PROTEIN,URINE 2+ (NEGATIVE); UROBILINOGEN,URINE NORMAL (NORMAL)
[2017-02-14 21:37] LABS: APPEARANCE,URINE CLEAR (CLEAR); BACTERIA,URINE TRACE /HPF (NEGATIVE); COLOR,URINE YELLOW (YELLOW); HYALINE CASTS, URINE FEW /LPF (NEGATIVE); RBC,URINE NONE SEEN /HPF (NEGATIVE); SQUAMOUS EPITHELIAL CELL,UR RARE /HPF (NEGATIVE)
[2017-02-15] MEDS: NS 1000 ML 1,000 ML IV SCH ×5 (00:25→23:29)
[2017-02-15] MEDS: CHRONULAC PO SCH ×5 (01:15→21:07)
[2017-02-15] MEDS: XIFAXAN PO SCH ×3 (01:15→21:07)
[2017-02-15 07:52] LABS: BASOPHILS % (AUTO) 0.7 % (0.2-1.0); EOSINOPHILS # (AUTO) 0.1 x10^3/uL (0.0-0.2); EOSINOPHILS % (AUTO) 1.6 % (0.9-2.9); HEMATOCRIT 37.8 % (42.0-54.0); HEMOGLOBIN 12.7 g/dL (13.5-18.0); LYMPHOCYTES # (AUTO) 1.6 X10^3/uL (1.3-2.9); LYMPHOCYTES % (AUTO) 36.6 % (21.0-51.0); MEAN CORPUSCULAR HEMOGLOBIN 32.9 pg (27.0-34.0); MEAN CORPUSCULAR HGB CONC 33.5 g/dL (33.0-35.0); MEAN PLATELET VOLUME 8.3 fL (7.4-11.0); MONOCYTES # (AUTO) 0.4 x10^3/uL (0.3-0.8); MONOCYTES % (AUTO) 9.4 % (0.0-13.0); NEUTROPHILS # (AUTO) 2.3 x10^3/uL (2.2-4.8); NEUTROPHILS % (AUTO) 51.7 % (42.0-75.0); PLATELET COUNT 76 X10^3/uL (150.0-450.0); RED BLOOD COUNT 3.86 X10^6/uL (4.7-6.0); RED CELL DISTRIBUTION WIDTH 17.4 % (11.6-16.5); WHITE BLOOD COUNT 4.5 X10^3/uL (3.6-10.0)
[2017-02-15 07:59] LABS: ALANINE AMINOTRANSFERASE 17 Units/L (12-78); ALBUMIN 2.7 g/dL (3.4-5.0); ALKALINE PHOSPHATASE 170 Units/L (46-116); ASPARTATE AMINO TRANSFERASE 66 Units/L (15-37); BLOOD UREA NITROGEN 13 mg/dL (7-18); CALCIUM 12.3 mg/dL (8.5-10.1); CARBON DIOXIDE 28.6 mmol/L (21-32); CHLORIDE 109 mmol/L (98-107); COR CA(FOR HYPOALB) 13.3 mg/dL (8.5-10.1); CREATININE 0.86 mg/dL (0.70-1.30); SODIUM 147 mmol/L (136-145); TOTAL PROTEIN 5.8 g/dL (6.4-8.2); eGFR BLACK RACES > 60 (>60); eGFR NON BLACK RACES > 60 (>60)
[2017-02-15] MEDS: NORCO 5/325 MG TAB PO PRN (12:36)
--- NOTE | 2017-02-15 13:07 | DR.H&P ---
H&P - History & Physical for Day of: H&P Date: 02/14/17 - Chief Complaint Chief Complaint: AMS - Allergies Allergies/Adverse Reactions: Allergies Allergy/AdvReac Type Severity Reaction Status Date / Time No Known Drug Allergies Allergy Verified 01/08/17 01:37 - History of Present Illness History of Present Illness: 67 WM PRESENTED TO THE ED WITH FAMILY. PT FAMILY STATES PT HAS HAD INCREASED WEAKNESS AND CONFUSION. PT HAS HAD UNCONTROLLED BOWEL AND BLADDER AND MULTIPLE FALLS. 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 PT HAD CT IN ED PRIOR TO ADMISSION. PT AMMONIA ELEVATED ON ADMISSION. PLAN TO ADMIT, FURTHER EVALUATION OF WEAKNESS, CORRECTED ELEVATED AMMONIA LEVELS, RESUME HOME MEDS. PT - Past Medical History Past Medical History: Cirrhosis, COPD, Diabetes, GERD, Hypertension - Past Surgical History Surgical History: Appendectomy, Cholecystectomy - Family History Family Medical History: Diabetes Mellitus, Coronary Artery Disease, Hypertension - Social History Does patient currently use any type of tobacco product: No Have you used tobacco products in the last 12 months: No Type of Tobacco Use: None Does any household member use tobacco: No Alcohol Use: None Drug Use: None - Medications Home Medications: Gabapentin [Neurontin Tab 600 mg] 600 mg PO HS 02/14/17 [History Confirmed 02/15] Nitroglycerin Sublingual [NITROSTAT SUBLING TAB 0.4 MG *] 0.4 mg SL PRN PRN [History Confirmed 02/15/17] Pantoprazole Sodium 40 mg [Protonix Tab 40 mg] 40 mg PO BID 02/14/17 [History Confirmed 02/15/17] Potassium Chloride [K-Dur Tab 20 Meq] 20 meq PO DAILY PRN 02/14/17 [History Confirmed 02/15/17] Rifaximin [Xifaxan] 550 mg PO BID 02/15/17 [History Confirmed 02/15/17] - Review of Systems Constitutional: Weakness Eyes: No Symptoms Reported ENT: No Symptoms Reported Respiratory: No Symptoms Reported Gastrointestinal: No Symptoms Reported Genitourinary: No Symptoms Reported Musculoskeletal: Back Pain, Leg Pain Skin: Ecchymosis Neurological: Weakness, Confusion - Physical Exam Vital Signs: Temperature 97.8 F Pulse Rate [Left Brachial] 80 Pulse Rate [Right Brachial] 71 Pulse Rate 61 Respiratory Rate 20 Blood Pressure [Right Arm] 136/65 Blood Pressure [Left Arm] 119/56 Blood Pressure 114/60 O2 Sat by Pulse Oximetry 97 Oriented: Person Eyes: Normal Ear: Normal Nose: Normal Throat: Normal Respiratory: RLL Diminished, LLL Diminished Cardiovascular: Normal, Edema Palpation: Liver Enlarged Tenderness: Diffuse Skin: Decreased Turgur, Bruising Musculoskeletal: Right, Tender (RIGHT RIB) Psychiatric: Depression Mood Description: Calm - Assessment/Plan (1) Altered mental status Qualifiers: Altered mental status type: transient alteration of awareness Qualified Code(s): R40.4 - Transient alteration of awareness Status: Acute Plan: ADMIT, TREATMENT OF HYPERAMMONIA LEVEL. IV HYDRATION, ADMISSION LABS. RESUME HOME MEDS, PT ASSESSMENT. CONSULT CASE MANAGEMENT FOR DETENTION PLACEMENT. REPEAT AM LABS, RESP THERAPY (2) Cirrhosis of liver Qualifiers: Hepatic cirrhosis type: unspecified hepatic cirrhosis Ascites presence: without ascites Qualified Code(s): K74.60 - Unspecified cirrhosis of liver Status: Acute (3) Hyperammonemia Status: Acute (4) GERD (gastroesophageal reflux disease) Status: Acute (5) Generalized weakness Status: Acute (6) Hypertension Qualifiers: Hypertension type: essential hypertension Qualified Code(s): I10 - Essential (primary) hypertension Status: Acute
[2017-02-15 13:44] VITALS: BMI 27.0
[2017-02-15] MEDS: PROTONIX INJ 40 MG VIAL IVP SCH (17:47)
[2017-02-16] MEDS: NORCO 5/325 MG TAB PO PRN (05:53)
[2017-02-16 05:56] LABS: AMMONIA 82 umol/L (11-32)
[2017-02-16 06:25] LABS: ALANINE AMINOTRANSFERASE 21 Units/L (12-78); ALBUMIN 2.7 g/dL (3.4-5.0); ALKALINE PHOSPHATASE 173 Units/L (46-116); ASPARTATE AMINO TRANSFERASE 71 Units/L (15-37); BLOOD UREA NITROGEN 10 mg/dL (7-18); CALCIUM 11.2 mg/dL (8.5-10.1); CARBON DIOXIDE 28.4 mmol/L (21-32); CHLORIDE 112 mmol/L (98-107); COR CA(FOR HYPOALB) 12.2 mg/dL (8.5-10.1); COR NA(FOR HYPERGLY) 150 mmol/L (136-145); CREATININE 0.89 mg/dL (0.70-1.30); SODIUM 149 mmol/L (136-145); TOTAL PROTEIN 5.7 g/dL (6.4-8.2); eGFR BLACK RACES > 60 (>60); eGFR NON BLACK RACES > 60 (>60)
[2017-02-16] MEDS ORDERED: MAGNESIUM SULFATE 1 GM/100 mL PREMIX 1 GM/100 ML BAG IV PRN (06:41)
--- NOTE | 2017-02-16 06:43 | RAD ---
HISTORY: Injury, fall, right lower rib pain Study: Chest AP portable Comparison: 02/14/2017 Findings: The heart is enlarged. No congestive heart failure is noted. No acute alveolar infiltrates or pleural effusions are identified. There appear to be diffuse small lytic bone lesions present which could be indicative of bony involvement with multiple myeloma, less likely metastatic disease. IMPRESSION: Cardiomegaly without congestive heart failure Lungs clear Lytic bone lesions with an appearance suggestive of multiple myeloma Reported By:
[2017-02-16 07:27] LABS: BASOPHILS % (AUTO) 0.7 % (0.2-1.0); EOSINOPHILS % (AUTO) 1.1 % (0.9-2.9); HEMATOCRIT 35.5 % (42.0-54.0); HEMOGLOBIN 12.1 g/dL (13.5-18.0); LYMPHOCYTES # (AUTO) 1.3 X10^3/uL (1.3-2.9); LYMPHOCYTES % (AUTO) 33.1 % (21.0-51.0); MEAN CORPUSCULAR HEMOGLOBIN 33.1 pg (27.0-34.0); MEAN CORPUSCULAR HGB CONC 34.1 g/dL (33.0-35.0); MEAN CORPUSCULAR VOLUME 96.9 fL (80.0-100.0); MEAN PLATELET VOLUME 8.6 fL (7.4-11.0); MONOCYTES # (AUTO) 0.4 x10^3/uL (0.3-0.8); MONOCYTES % (AUTO) 10.5 % (0.0-13.0); NEUTROPHILS # (AUTO) 2.1 x10^3/uL (2.2-4.8); NEUTROPHILS % (AUTO) 54.6 % (42.0-75.0); PLATELET COUNT 72 X10^3/uL (150.0-450.0); RED BLOOD COUNT 3.67 X10^6/uL (4.7-6.0); RED CELL DISTRIBUTION WIDTH 16.8 % (11.6-16.5); WHITE BLOOD COUNT 3.9 X10^3/uL (3.6-10.0)
[2017-02-16] MEDS: K-RIDER 10 MEQ/NS 100 ML 10 MEQ/100 ML BAG IV PRN ×6 (07:42→23:13)
[2017-02-16] MEDS: MAG-OX TAB PO PRN (08:56)
[2017-02-16] MEDS ORDERED: LASIX IVP ONE ×2 (09:36→11:00)
[2017-02-16] MEDS ORDERED: NS 1/2 1000 ML IV 1,000 ML IV SCH (10:00)
[2017-02-16] MEDS ORDERED: NS 50 ML IV 50 ML IV ONE (10:05)
[2017-02-16] MEDS ORDERED: NS 1/2 1000 ML IV 1,000 ML IV ONE (10:30)
[2017-02-16] MEDS: CHRONULAC PO SCH ×4 (10:34→22:05)
[2017-02-16] MEDS: XIFAXAN PO SCH ×2 (10:34→22:06)
[2017-02-16] MEDS: PROTONIX INJ 40 MG VIAL IVP SCH (10:35)
--- NOTE | 2017-02-16 11:23 | RAD ---
Examination: KUB History: Abdominal distention Comparison reference: Abdomen CT, 01/13/2017 Findings: There is moderate gaseous distention of the colon, including the rectosigmoid. There is no significant small bowel dilatation, ascites, mass formation or pathologic calcification. Suggestion o f irregular lytic lucencies involving several osseous structures. Impression: 1. Gaseous distention of colon is probably: Ileus, less likely rectosigmoid obstruction. Correlate cl inically. 2. Possible destructive bony lesions; please see recent abdomen CT report in this regard. Reported By:
[2017-02-16] MEDS ORDERED: ULTRAM PO SCH (14:00)
[2017-02-16] MEDS ORDERED: ULTRAM PO PRN (14:10)
[2017-02-16] MEDS ORDERED: XIFAXAN PO SCH (17:45)
[2017-02-16] MEDS: PROTONIX TAB 40 MG PO SCH (22:05)
[2017-02-16] MEDS: COREG TAB 12.5 MG PO SCH ×2 (22:05→22:06)
[2017-02-16] MEDS: TRICOR TAB 160 MG PO SCH (22:06)
[2017-02-16] MEDS: NEURONTIN TAB 600 MG PO SCH (22:06)
[2017-02-17] MEDS: K-RIDER 10 MEQ/NS 100 ML 10 MEQ/100 ML BAG IV PRN ×5 (00:28→04:56)
[2017-02-17] MEDS ORDERED: NS 1/2 1000 ML IV 0 ML IV ONE (06:48)
[2017-02-17 09:09] LABS: BASOPHILS % (AUTO) 0.4 % (0.2-1.0); EOSINOPHILS % (AUTO) 1.7 % (0.9-2.9); HEMATOCRIT 34.7 % (42.0-54.0); HEMOGLOBIN 11.8 g/dL (13.5-18.0); LYMPHOCYTES % (AUTO) 36.9 % (21.0-51.0); MEAN CORPUSCULAR VOLUME 96.9 fL (80.0-100.0); MEAN PLATELET VOLUME 8.3 fL (7.4-11.0); MONOCYTES # (AUTO) 0.3 x10^3/uL (0.3-0.8); MONOCYTES % (AUTO) 10.1 % (0.0-13.0); NEUTROPHILS # (AUTO) 1.3 x10^3/uL (2.2-4.8); NEUTROPHILS % (AUTO) 50.9 % (42.0-75.0); PLATELET COUNT 61 X10^3/uL (150.0-450.0); RED BLOOD COUNT 3.58 X10^6/uL (4.7-6.0); RED CELL DISTRIBUTION WIDTH 17.1 % (11.6-16.5); WHITE BLOOD COUNT 2.6 X10^3/uL (3.6-10.0)
[2017-02-17 09:25] LABS: AMMONIA 89 umol/L (11-32)
[2017-02-17 09:28] LABS: ALANINE AMINOTRANSFERASE 24 Units/L (12-78); ALBUMIN 2.6 g/dL (3.4-5.0); ALKALINE PHOSPHATASE 163 Units/L (46-116); ASPARTATE AMINO TRANSFERASE 79 Units/L (15-37); BLOOD UREA NITROGEN 8 mg/dL (7-18); CALCIUM 11.5 mg/dL (8.5-10.1); CARBON DIOXIDE 26.9 mmol/L (21-32); CHLORIDE 112 mmol/L (98-107); COR CA(FOR HYPOALB) 12.6 mg/dL (8.5-10.1); COR NA(FOR HYPERGLY) 147 mmol/L (136-145); CREATININE 0.64 mg/dL (0.70-1.30); SODIUM 145 mmol/L (136-145); TOTAL PROTEIN 5.3 g/dL (6.4-8.2); eGFR BLACK RACES > 60 (>60); eGFR NON BLACK RACES > 60 (>60)
[2017-02-17] MEDS: COREG TAB 12.5 MG PO SCH ×2 (09:47→21:18)
[2017-02-17] MEDS: CHRONULAC PO SCH ×4 (09:47→21:18)
[2017-02-17] MEDS: PROzac PO SCH (09:47)
[2017-02-17] MEDS: XIFAXAN PO SCH ×2 (09:47→21:18)
[2017-02-17] MEDS: PROTONIX TAB 40 MG PO SCH ×2 (09:48→21:18)
[2017-02-17] MEDS ORDERED: GLUCOPHAGE ONE ×2 (09:49→16:00)
[2017-02-17] MEDS: GLUCOPHAGE PO SCH ×2 (09:51→16:24)
[2017-02-17] MEDS: CANAGLIFLOZIN PO SCH (09:58)
[2017-02-17] MEDS: ULTRAM PO PRN (11:30)
[2017-02-17] MEDS ORDERED: POTASSIUM CHLORIDE IV SCH ×2 (16:00)
[2017-02-17] MEDS ORDERED: NS IV SCH ×2 (16:00)
[2017-02-17] MEDS: NEURONTIN TAB 600 MG PO SCH (21:18)
[2017-02-17] MEDS: TRICOR TAB 160 MG PO SCH (21:18)
[2017-02-17] MEDS: SNACK - Diabetic Appropriate PO SCH (21:18)
[2017-02-18 05:59] LABS: BASOPHILS % (AUTO) 0.5 % (0.2-1.0); EOSINOPHILS # (AUTO) 0.1 x10^3/uL (0.0-0.2); EOSINOPHILS % (AUTO) 2.3 % (0.9-2.9); HEMATOCRIT 34.5 % (42.0-54.0); HEMOGLOBIN 11.6 g/dL (13.5-18.0); LYMPHOCYTES # (AUTO) 1.3 X10^3/uL (1.3-2.9); LYMPHOCYTES % (AUTO) 44.6 % (21.0-51.0); MEAN CORPUSCULAR HGB CONC 33.8 g/dL (33.0-35.0); MEAN CORPUSCULAR VOLUME 97.7 fL (80.0-100.0); MEAN PLATELET VOLUME 8.5 fL (7.4-11.0); MONOCYTES # (AUTO) 0.3 x10^3/uL (0.3-0.8); MONOCYTES % (AUTO) 10.5 % (0.0-13.0); NEUTROPHILS # (AUTO) 1.2 x10^3/uL (2.2-4.8); NEUTROPHILS % (AUTO) 42.1 % (42.0-75.0); PLATELET COUNT 65 X10^3/uL (150.0-450.0); RED BLOOD COUNT 3.53 X10^6/uL (4.7-6.0); RED CELL DISTRIBUTION WIDTH 17.2 % (11.6-16.5); WHITE BLOOD COUNT 2.9 X10^3/uL (3.6-10.0)
--- NOTE | 2017-02-18 06:18 | RAD ---
History: Abdominal distention Study: KUB Comparison: February 16 Findings: There is mildly decreased gaseous distention of colon. There is no small bowel distention. There are degenerative changes in the spine. Impression: Improving ileus of the colon Reported By:
[2017-02-18 06:50] LABS: ALANINE AMINOTRANSFERASE 29 Units/L (12-78); ALBUMIN 2.5 g/dL (3.4-5.0); ALKALINE PHOSPHATASE 165 Units/L (46-116); ASPARTATE AMINO TRANSFERASE 79 Units/L (15-37); BLOOD UREA NITROGEN 9 mg/dL (7-18); CARBON DIOXIDE 26.9 mmol/L (21-32); CHLORIDE 110 mmol/L (98-107); COR NA(FOR HYPERGLY) 145 mmol/L (136-145); CREATININE 0.93 mg/dL (0.70-1.30); SODIUM 145 mmol/L (136-145); TOTAL PROTEIN 5.6 g/dL (6.4-8.2); eGFR BLACK RACES > 60 (>60); eGFR NON BLACK RACES > 60 (>60)
[2017-02-18 07:23] LABS: CALCIUM 12.2 mg/dL (8.5-10.1); COR CA(FOR HYPOALB) 13.4 mg/dL (8.5-10.1)
[2017-02-18] MEDS ORDERED: GLUCOPHAGE ONE ×2 (08:54→16:01)
[2017-02-18] MEDS: CHRONULAC PO SCH ×4 (09:23→20:11)
[2017-02-18] MEDS: XIFAXAN PO SCH ×2 (09:24→20:12)
[2017-02-18] MEDS: PROTONIX TAB 40 MG PO SCH ×2 (09:24→20:12)
[2017-02-18] MEDS: GLUCOPHAGE PO SCH ×2 (09:24→16:21)
[2017-02-18] MEDS: PROzac PO SCH (09:24)
[2017-02-18] MEDS: COREG TAB 12.5 MG PO SCH ×2 (09:24→20:12)
[2017-02-18] MEDS: CANAGLIFLOZIN PO SCH (09:52)
[2017-02-18] MEDS: POTASSIUM CHLORIDE IV SCH ×2 (10:42)
[2017-02-18] MEDS: NS IV SCH ×2 (10:42)
[2017-02-18] MEDS: ULTRAM PO PRN ×2 (12:19→20:12)
[2017-02-18] MEDS: SNACK - Diabetic Appropriate PO SCH (20:11)
[2017-02-18] MEDS: NEURONTIN TAB 600 MG PO SCH (20:12)
[2017-02-18] MEDS: TRICOR TAB 160 MG PO SCH (20:12)
[2017-02-19] MEDS: NS IV SCH ×4 (03:25→20:40)
[2017-02-19] MEDS: POTASSIUM CHLORIDE IV SCH ×4 (03:25→20:40)
[2017-02-19 06:30] LABS: BASOPHILS % (AUTO) 0.4 % (0.2-1.0); EOSINOPHILS # (AUTO) 0.1 x10^3/uL (0.0-0.2); EOSINOPHILS % (AUTO) 2.5 % (0.9-2.9); HEMATOCRIT 34.9 % (42.0-54.0); HEMOGLOBIN 11.9 g/dL (13.5-18.0); LYMPHOCYTES # (AUTO) 1.1 X10^3/uL (1.3-2.9); LYMPHOCYTES % (AUTO) 39.6 % (21.0-51.0); MEAN CORPUSCULAR HEMOGLOBIN 33.1 pg (27.0-34.0); MEAN CORPUSCULAR VOLUME 97.4 fL (80.0-100.0); MEAN PLATELET VOLUME 8.4 fL (7.4-11.0); MONOCYTES # (AUTO) 0.3 x10^3/uL (0.3-0.8); MONOCYTES % (AUTO) 11.8 % (0.0-13.0); NEUTROPHILS # (AUTO) 1.3 x10^3/uL (2.2-4.8); NEUTROPHILS % (AUTO) 45.7 % (42.0-75.0); PLATELET COUNT 66 X10^3/uL (150.0-450.0); RED BLOOD COUNT 3.58 X10^6/uL (4.7-6.0); RED CELL DISTRIBUTION WIDTH 17.5 % (11.6-16.5); WHITE BLOOD COUNT 2.9 X10^3/uL (3.6-10.0)
--- NOTE | 2017-02-19 06:39 | RAD ---
Chest, one-view Indication: COPD Comparison: 02/16/2017 Findings: Patient is rotated towards the left. Accounting for patient rotation, there is stable cardi omegaly without congestive failure. No focal consolidation, effusion or pneumothorax is identified. D iffuse lytic lesions throughout the visualized osseous structures, suggestive for multiple myeloma ap pear unchanged. Impression: Stable cardiomegaly without congestive failure or focal pneumonia. Grossly unchanged diffuse lytic osseous lesions, again suggestive for multiple myeloma. Reported By:
[2017-02-19 06:42] LABS: ALANINE AMINOTRANSFERASE 32 Units/L (12-78); ALBUMIN 2.7 g/dL (3.4-5.0); ALKALINE PHOSPHATASE 192 Units/L (46-116); ASPARTATE AMINO TRANSFERASE 82 Units/L (15-37); BLOOD UREA NITROGEN 8 mg/dL (7-18); CHLORIDE 108 mmol/L (98-107); COR CA(FOR HYPOALB) 13.8 mg/dL (8.5-10.1); COR NA(FOR HYPERGLY) 144 mmol/L (136-145); CREATININE 0.81 mg/dL (0.70-1.30); SODIUM 144 mmol/L (136-145); TOTAL PROTEIN 5.7 g/dL (6.4-8.2); eGFR BLACK RACES > 60 (>60); eGFR NON BLACK RACES > 60 (>60)
[2017-02-19 06:49] LABS: CALCIUM 12.8 mg/dL (8.5-10.1)
[2017-02-19] MEDS ORDERED: GLUCOPHAGE ONE ×2 (08:19→16:27)
[2017-02-19] MEDS: PROzac PO SCH (08:27)
[2017-02-19] MEDS: XIFAXAN PO SCH ×2 (08:27→20:40)
[2017-02-19] MEDS: CANAGLIFLOZIN PO SCH (08:27)
[2017-02-19] MEDS: PROTONIX TAB 40 MG PO SCH ×2 (08:27→20:40)
[2017-02-19] MEDS: GLUCOPHAGE PO SCH ×2 (08:27→16:32)
[2017-02-19] MEDS: CHRONULAC PO SCH ×4 (08:27→20:41)
[2017-02-19] MEDS: COREG TAB 12.5 MG PO SCH ×2 (08:27→20:40)
--- NOTE | 2017-02-19 14:41 | RAD ---
Examination: Left femur, AP and lateral views History: Fell, possible lung cancer, according to patient Findings: Multiple views of the femur demonstrate an extensive osteolytic permeative pattern of destr uction in portions of the left pelvis and femur. No pathologic fracture is seen. There is no evidence for periosteal reaction or associated osteoblastic process. Impression: No fracture identified. Appearance of the bony structures is consistent with metastatic d isease or multiple myeloma. Correlate with history and laboratory findings. Reported By:
[2017-02-19] MEDS: SNACK - Diabetic Appropriate PO SCH (20:39)
[2017-02-19] MEDS: ULTRAM PO PRN (20:40)
[2017-02-19] MEDS: TRICOR TAB 160 MG PO SCH (20:41)
[2017-02-19] MEDS: NEURONTIN TAB 600 MG PO SCH (20:41)
[2017-02-20 06:13] LABS: BASOPHILS % (AUTO) 0.4 % (0.2-1.0); EOSINOPHILS # (AUTO) 0.1 x10^3/uL (0.0-0.2); EOSINOPHILS % (AUTO) 1.8 % (0.9-2.9); HEMATOCRIT 35.2 % (42.0-54.0); HEMOGLOBIN 12.1 g/dL (13.5-18.0); LYMPHOCYTES # (AUTO) 1.1 X10^3/uL (1.3-2.9); LYMPHOCYTES % (AUTO) 39.7 % (21.0-51.0); MEAN CORPUSCULAR HEMOGLOBIN 33.3 pg (27.0-34.0); MEAN CORPUSCULAR HGB CONC 34.3 g/dL (33.0-35.0); MEAN CORPUSCULAR VOLUME 97.2 fL (80.0-100.0); MEAN PLATELET VOLUME 8.4 fL (7.4-11.0); MONOCYTES # (AUTO) 0.3 x10^3/uL (0.3-0.8); MONOCYTES % (AUTO) 11.5 % (0.0-13.0); NEUTROPHILS # (AUTO) 1.3 x10^3/uL (2.2-4.8); NEUTROPHILS % (AUTO) 46.6 % (42.0-75.0); PLATELET COUNT 65 X10^3/uL (150.0-450.0); RED BLOOD COUNT 3.62 X10^6/uL (4.7-6.0); RED CELL DISTRIBUTION WIDTH 16.8 % (11.6-16.5); WHITE BLOOD COUNT 2.7 X10^3/uL (3.6-10.0)
[2017-02-20 06:43] LABS: ALANINE AMINOTRANSFERASE 31 Units/L (12-78); ALBUMIN 2.6 g/dL (3.4-5.0); ALKALINE PHOSPHATASE 184 Units/L (46-116); ASPARTATE AMINO TRANSFERASE 78 Units/L (15-37); BLOOD UREA NITROGEN 7 mg/dL (7-18); CARBON DIOXIDE 30.3 mmol/L (21-32); CHLORIDE 108 mmol/L (98-107); CREATININE 0.79 mg/dL (0.70-1.30); SODIUM 144 mmol/L (136-145); TOTAL PROTEIN 5.8 g/dL (6.4-8.2); eGFR BLACK RACES > 60 (>60); eGFR NON BLACK RACES > 60 (>60)
[2017-02-20 07:27] LABS: COR CA(FOR HYPOALB) 13.9 mg/dL (8.5-10.1)
[2017-02-20 07:32] LABS: CALCIUM 12.8 mg/dL (8.5-10.1)
[2017-02-20] MEDS ORDERED: GLUCOPHAGE ONE ×2 (08:56→16:11)
[2017-02-20] MEDS: XIFAXAN PO SCH ×2 (09:43→21:10)
[2017-02-20] MEDS: PROzac PO SCH (09:43)
[2017-02-20] MEDS: GLUCOPHAGE PO SCH ×2 (09:43→16:36)
[2017-02-20] MEDS: CANAGLIFLOZIN PO SCH (09:43)
[2017-02-20] MEDS: PROTONIX TAB 40 MG PO SCH ×2 (09:43→21:10)
[2017-02-20] MEDS: COREG TAB 12.5 MG PO SCH ×2 (09:43→21:10)
[2017-02-20] MEDS: CHRONULAC PO SCH ×4 (09:43→21:10)
[2017-02-20 11:07] LABS: MAGNESIUM 1.4 mg/dL (1.7-2.9)
[2017-02-20] MEDS: ULTRAM PO PRN (21:10)
[2017-02-20] MEDS: TRICOR TAB 160 MG PO SCH (21:10)
[2017-02-20] MEDS: NEURONTIN TAB 600 MG PO SCH (21:10)
[2017-02-20] MEDS: SNACK - Diabetic Appropriate PO SCH (21:11)
[2017-02-21 00:04] LABS: BILIRUBIN,URINE NEGATIVE (NEGATIVE); BLOOD/HEMOGLOBIN,URINE 1+ (NEGATIVE); GLUCOSE, URINE 4+ (NEGATIVE); KETONES,URINE NEGATIVE (NEGATIVE); LEUKOCYTE ESTERASE ,URINE NEGATIVE (NEGATIVE); NITRITES,URINE NEGATIVE (NEGATIVE); PROTEIN,URINE 2+ (NEGATIVE); UROBILINOGEN,URINE NORMAL (NORMAL)
[2017-02-21 00:11] LABS: APPEARANCE,URINE CLEAR (CLEAR); BACTERIA,URINE TRACE /HPF (NEGATIVE); COLOR,URINE YELLOW (YELLOW); RBC,URINE 0-3 /HPF (NEGATIVE); SQUAMOUS EPITHELIAL CELL,UR RARE /HPF (NEGATIVE)
[2017-02-21 00:12] LABS: MUCUS,URINE MODERATE /HPF (NEGATIVE)
[2017-02-21] MEDS: NS IV SCH ×4 (06:01→23:48)
[2017-02-21] MEDS: POTASSIUM CHLORIDE IV SCH ×4 (06:01→23:48)
[2017-02-21] MEDS: GLUCOPHAGE PO SCH ×2 (06:02→16:52)
[2017-02-21] MEDS ORDERED: GLUCOPHAGE ONE ×2 (06:03→16:47)
[2017-02-21 06:19] LABS: BASOPHILS % (AUTO) 0.4 % (0.2-1.0); EOSINOPHILS % (AUTO) 1.9 % (0.9-2.9); HEMATOCRIT 35.1 % (42.0-54.0); HEMOGLOBIN 11.8 g/dL (13.5-18.0); LYMPHOCYTES # (AUTO) 1.1 X10^3/uL (1.3-2.9); LYMPHOCYTES % (AUTO) 39.6 % (21.0-51.0); MEAN CORPUSCULAR HEMOGLOBIN 32.8 pg (27.0-34.0); MEAN CORPUSCULAR HGB CONC 33.7 g/dL (33.0-35.0); MEAN CORPUSCULAR VOLUME 97.3 fL (80.0-100.0); MEAN PLATELET VOLUME 8.4 fL (7.4-11.0); MONOCYTES # (AUTO) 0.4 x10^3/uL (0.3-0.8); MONOCYTES % (AUTO) 13.4 % (0.0-13.0); NEUTROPHILS # (AUTO) 1.2 x10^3/uL (2.2-4.8); NEUTROPHILS % (AUTO) 44.7 % (42.0-75.0); PLATELET COUNT 65 X10^3/uL (150.0-450.0); RED CELL DISTRIBUTION WIDTH 17.3 % (11.6-16.5); WHITE BLOOD COUNT 2.7 X10^3/uL (3.6-10.0)
[2017-02-21 06:30] LABS: ALANINE AMINOTRANSFERASE 27 Units/L (12-78); ALBUMIN 2.6 g/dL (3.4-5.0); ALKALINE PHOSPHATASE 181 Units/L (46-116); ASPARTATE AMINO TRANSFERASE 77 Units/L (15-37); BLOOD UREA NITROGEN 9 mg/dL (7-18); CARBON DIOXIDE 28.9 mmol/L (21-32); CHLORIDE 108 mmol/L (98-107); COR CA(FOR HYPOALB) 14.3 mg/dL (8.5-10.1); COR NA(FOR HYPERGLY) 144 mmol/L (136-145); CREATININE 0.86 mg/dL (0.70-1.30); SODIUM 144 mmol/L (136-145); TOTAL PROTEIN 5.7 g/dL (6.4-8.2); eGFR BLACK RACES > 60 (>60); eGFR NON BLACK RACES > 60 (>60)
[2017-02-21 06:40] LABS: CALCIUM 13.2 mg/dL (8.5-10.1)
[2017-02-21 07:00] LABS: MAGNESIUM 1.6 mg/dL (1.7-2.9)
[2017-02-21] MEDS: CHRONULAC PO SCH ×4 (09:05→21:23)
[2017-02-21] MEDS: PROzac PO SCH (09:05)
[2017-02-21] MEDS: PROTONIX TAB 40 MG PO SCH ×2 (09:05→21:23)
[2017-02-21] MEDS: COREG TAB 12.5 MG PO SCH ×2 (09:05→21:23)
[2017-02-21] MEDS: XIFAXAN PO SCH ×2 (09:06→21:23)
[2017-02-21] MEDS: CANAGLIFLOZIN PO SCH (09:07)
[2017-02-21] MEDS ORDERED: LASIX IVP ONE ×2 (09:42→15:00)
[2017-02-21] MEDS ORDERED: LASIX PO ONE ×2 (11:32→15:00)
[2017-02-21] MEDS ORDERED: BUTT CREAM (COMPOUND) TOP PRN (17:37)
[2017-02-21] MEDS: NEURONTIN TAB 600 MG PO SCH (21:23)
[2017-02-21] MEDS: TRICOR TAB 160 MG PO SCH (21:23)
[2017-02-21] MEDS: SNACK - Diabetic Appropriate PO SCH (21:39)
[2017-02-22 06:30] LABS: AMMONIA 76 umol/L (11-32)
[2017-02-22 06:35] LABS: ALANINE AMINOTRANSFERASE 28 Units/L (12-78); ALBUMIN 2.6 g/dL (3.4-5.0); ALKALINE PHOSPHATASE 187 Units/L (46-116); ASPARTATE AMINO TRANSFERASE 82 Units/L (15-37); BLOOD UREA NITROGEN 9 mg/dL (7-18); CARBON DIOXIDE 32.7 mmol/L (21-32); CHLORIDE 108 mmol/L (98-107); COR CA(FOR HYPOALB) 14.5 mg/dL (8.5-10.1); CREATININE 0.82 mg/dL (0.70-1.30); MAGNESIUM 1.6 mg/dL (1.7-2.9); SODIUM 146 mmol/L (136-145); TOTAL PROTEIN 5.8 g/dL (6.4-8.2); eGFR BLACK RACES > 60 (>60); eGFR NON BLACK RACES > 60 (>60)
[2017-02-22 06:44] LABS: CALCIUM 13.4 mg/dL (8.5-10.1)
[2017-02-22 07:34] LABS: BASOPHILS % (AUTO) 0.4 % (0.2-1.0); EOSINOPHILS % (AUTO) 1.1 % (0.9-2.9); HEMOGLOBIN 12.2 g/dL (13.5-18.0); LYMPHOCYTES # (AUTO) 1.1 X10^3/uL (1.3-2.9); LYMPHOCYTES % (AUTO) 33.2 % (21.0-51.0); MEAN CORPUSCULAR HEMOGLOBIN 32.9 pg (27.0-34.0); MEAN CORPUSCULAR HGB CONC 33.8 g/dL (33.0-35.0); MEAN CORPUSCULAR VOLUME 97.3 fL (80.0-100.0); MEAN PLATELET VOLUME 8.8 fL (7.4-11.0); MONOCYTES # (AUTO) 0.4 x10^3/uL (0.3-0.8); MONOCYTES % (AUTO) 12.3 % (0.0-13.0); NEUTROPHILS # (AUTO) 1.7 x10^3/uL (2.2-4.8); PLATELET COUNT 65 X10^3/uL (150.0-450.0); RED CELL DISTRIBUTION WIDTH 16.9 % (11.6-16.5); WHITE BLOOD COUNT 3.2 X10^3/uL (3.6-10.0)
[2017-02-22] MEDS ORDERED: GLUCOPHAGE ONE ×2 (08:40→15:50)
[2017-02-22] MEDS: CHRONULAC PO SCH ×4 (08:44→21:55)
[2017-02-22] MEDS: PROzac PO SCH (08:44)
[2017-02-22] MEDS: GLUCOPHAGE PO SCH ×2 (08:44→16:33)
[2017-02-22] MEDS: PROTONIX TAB 40 MG PO SCH ×2 (08:44→21:55)
[2017-02-22] MEDS: XIFAXAN PO SCH ×2 (08:44→21:55)
[2017-02-22] MEDS: COREG TAB 12.5 MG PO SCH ×2 (08:45→21:55)
[2017-02-22] MEDS: CANAGLIFLOZIN PO SCH (08:46)
[2017-02-22] MEDS: POTASSIUM CHLORIDE IV SCH ×2 (20:20)
[2017-02-22] MEDS: NS IV SCH ×2 (20:20)
[2017-02-22] MEDS: SNACK - Diabetic Appropriate PO SCH (20:20)
[2017-02-22] MEDS: NEURONTIN TAB 600 MG PO SCH (21:55)
[2017-02-22] MEDS: TRICOR TAB 160 MG PO SCH (21:55)
[2017-02-23 05:08] LABS: AMMONIA 75 umol/L (11-32)
[2017-02-23 05:20] LABS: BASOPHILS % (AUTO) 0.3 % (0.2-1.0); EOSINOPHILS % (AUTO) 0.8 % (0.9-2.9); HEMATOCRIT 35.8 % (42.0-54.0); HEMOGLOBIN 12.1 g/dL (13.5-18.0); LYMPHOCYTES # (AUTO) 1.1 X10^3/uL (1.3-2.9); LYMPHOCYTES % (AUTO) 31.6 % (21.0-51.0); MEAN CORPUSCULAR HEMOGLOBIN 33.2 pg (27.0-34.0); MEAN CORPUSCULAR HGB CONC 33.8 g/dL (33.0-35.0); MEAN CORPUSCULAR VOLUME 98.4 fL (80.0-100.0); MEAN PLATELET VOLUME 8.3 fL (7.4-11.0); MONOCYTES # (AUTO) 0.5 x10^3/uL (0.3-0.8); NEUTROPHILS # (AUTO) 1.9 x10^3/uL (2.2-4.8); NEUTROPHILS % (AUTO) 54.3 % (42.0-75.0); PLATELET COUNT 64 X10^3/uL (150.0-450.0); RED BLOOD COUNT 3.64 X10^6/uL (4.7-6.0); RED CELL DISTRIBUTION WIDTH 17.4 % (11.6-16.5); WHITE BLOOD COUNT 3.5 X10^3/uL (3.6-10.0)
[2017-02-23 05:24] LABS: ALANINE AMINOTRANSFERASE 29 Units/L (12-78); ALBUMIN 2.6 g/dL (3.4-5.0); ALKALINE PHOSPHATASE 175 Units/L (46-116); ASPARTATE AMINO TRANSFERASE 76 Units/L (15-37); BLOOD UREA NITROGEN 9 mg/dL (7-18); CARBON DIOXIDE 32.1 mmol/L (21-32); CHLORIDE 109 mmol/L (98-107); COR CA(FOR HYPOALB) 14.6 mg/dL (8.5-10.1); CREATININE 0.94 mg/dL (0.70-1.30); MAGNESIUM 1.5 mg/dL (1.7-2.9); SODIUM 147 mmol/L (136-145); TOTAL PROTEIN 5.8 g/dL (6.4-8.2); eGFR BLACK RACES > 60 (>60); eGFR NON BLACK RACES > 60 (>60)
[2017-02-23 05:29] LABS: CALCIUM 13.5 mg/dL (8.5-10.1)
[2017-02-23] MEDS: K-LYTE EFFERVESCENT PO PRN (05:47)
[2017-02-23] MEDS: MAG-OX TAB PO PRN (05:48)
[2017-02-23] MEDS ORDERED: GLUCOPHAGE ONE ×2 (08:03→17:01)
[2017-02-23] MEDS: GLUCOPHAGE PO SCH ×2 (09:04→17:08)
[2017-02-23] MEDS: CHRONULAC PO SCH ×4 (09:05→21:53)
[2017-02-23] MEDS: COREG TAB 12.5 MG PO SCH ×2 (09:05→21:53)
[2017-02-23] MEDS: XIFAXAN PO SCH ×2 (09:05→21:53)
[2017-02-23] MEDS: CANAGLIFLOZIN PO SCH (09:06)
[2017-02-23] MEDS: POTASSIUM CHLORIDE IV SCH ×2 (09:06)
[2017-02-23] MEDS: NS IV SCH ×2 (09:06)
[2017-02-23] MEDS: PROTONIX TAB 40 MG PO SCH ×2 (09:06→21:53)
[2017-02-23] MEDS: PROzac PO SCH (09:09)
[2017-02-23] MEDS: NEURONTIN TAB 600 MG PO SCH (21:53)
[2017-02-23] MEDS: TRICOR TAB 160 MG PO SCH (21:53)
[2017-02-23] MEDS: SNACK - Diabetic Appropriate PO SCH (21:56)
[2017-02-24] MEDS ORDERED: GLUCOPHAGE ONE (05:54)
[2017-02-24 06:01] LABS: BASOPHILS % (AUTO) 0.3 % (0.2-1.0); EOSINOPHILS % (AUTO) 1.5 % (0.9-2.9); HEMATOCRIT 35.4 % (42.0-54.0); LYMPHOCYTES # (AUTO) 1.3 X10^3/uL (1.3-2.9); LYMPHOCYTES % (AUTO) 40.7 % (21.0-51.0); MEAN CORPUSCULAR HEMOGLOBIN 33.1 pg (27.0-34.0); MEAN CORPUSCULAR HGB CONC 33.9 g/dL (33.0-35.0); MEAN CORPUSCULAR VOLUME 97.8 fL (80.0-100.0); MEAN PLATELET VOLUME 8.6 fL (7.4-11.0); MONOCYTES # (AUTO) 0.4 x10^3/uL (0.3-0.8); MONOCYTES % (AUTO) 13.2 % (0.0-13.0); NEUTROPHILS # (AUTO) 1.4 x10^3/uL (2.2-4.8); NEUTROPHILS % (AUTO) 44.3 % (42.0-75.0); PLATELET COUNT 64 X10^3/uL (150.0-450.0); RED BLOOD COUNT 3.62 X10^6/uL (4.7-6.0); RED CELL DISTRIBUTION WIDTH 17.7 % (11.6-16.5); WHITE BLOOD COUNT 3.2 X10^3/uL (3.6-10.0)
[2017-02-24] MEDS: GLUCOPHAGE PO SCH (06:08)
[2017-02-24] MEDS: NS IV SCH ×2 (06:10)
[2017-02-24] MEDS: POTASSIUM CHLORIDE IV SCH ×2 (06:10)
[2017-02-24 06:12] LABS: ALANINE AMINOTRANSFERASE 26 Units/L (12-78); ALBUMIN 2.6 g/dL (3.4-5.0); ALKALINE PHOSPHATASE 176 Units/L (46-116); ASPARTATE AMINO TRANSFERASE 72 Units/L (15-37); BLOOD UREA NITROGEN 11 mg/dL (7-18); CARBON DIOXIDE 33.7 mmol/L (21-32); CHLORIDE 108 mmol/L (98-107); COR CA(FOR HYPOALB) 15.1 mg/dL (8.5-10.1); CREATININE 0.89 mg/dL (0.70-1.30); MAGNESIUM 1.8 mg/dL (1.7-2.9); SODIUM 149 mmol/L (136-145); TOTAL PROTEIN 5.7 g/dL (6.4-8.2); eGFR BLACK RACES > 60 (>60); eGFR NON BLACK RACES > 60 (>60)
[2017-02-24] MEDS: K-LYTE EFFERVESCENT PO PRN (07:21)
[2017-02-24] MEDS: CANAGLIFLOZIN PO SCH (09:49)
[2017-02-24] MEDS: PROTONIX TAB 40 MG PO SCH (09:49)
[2017-02-24] MEDS: COREG TAB 12.5 MG PO SCH (09:49)
[2017-02-24] MEDS: XIFAXAN PO SCH (09:49)
[2017-02-24] MEDS: PROzac PO SCH (09:49)
[2017-02-24] MEDS: CHRONULAC PO SCH (09:49)
[2017-02-24 12:50] VITALS: BP 133/65
== END 2017-02-24 12:33 | disposition hospice, home (50) | DRG 433 ==
LOC: ER 13:48 → OBS 20:32 → MED/SURG 02-15 16:45 → OBSVTOIN 02-16 10:00
PROVIDERS: ADMIT Obstetrics & Gynecology Obstetrics; ATTEND Internal Medicine
DX: K74.5 Biliary cirrhosis, unspecified (principal); C90.00 Multiple myeloma not having achieved remission; E72.20 Disorder of urea cycle metabolism, unspecified; S22.31XA Fracture of one rib, right side, initial encounter for closed fracture; R07.89 Other chest pain; R41.82 Altered mental status, unspecified; J44.9 Chronic obstructive pulmonary disease, unspecified; K72.90 Hepatic failure, unspecified without coma; E83.52 Hypercalcemia; E11.65 Type 2 diabetes mellitus with hyperglycemia; K21.9 Gastro-esophageal reflux disease without esophagitis; I10 Essential (primary) hypertension; Z91.81 History of falling; R94.31 Abnormal electrocardiogram [ECG] [EKG]; R53.1 Weakness; R29.6 Repeated falls; R60.0 Localized edema; Z66 Do not resuscitate; R62.7 Adult failure to thrive; E87.5 Hyperkalemia; I50.9 Heart failure, unspecified; D69.6 Thrombocytopenia, unspecified; R26.89 Other abnormalities of gait and mobility; W18.39XA Other fall on same level, initial encounter
CPT/HCPCS: 36415; 70450; 71010; 71111; 73552; 74000; 80053; 81001; 82140; 82550; 82553; 83735; 84132; 84484; 85025; 93005; 93010; 94760; 96365; 96367; 97535; 99231; 99284; A4216; A4222; C9113; G0378; J1940; J3480